=== PATIENT | male | born 1970 | race African-American/Black ===

== ENCOUNTER 2020-12-15 04:27 | Emergency (ER) | payer MEDICARE, MEDICAID ==
[~2020-12-15] VITALS: Ht 180.3 cm; Wt 77.3 kg
[~2020-12-15 04:27] MED LIST: NO HOME MEDS
[2020-12-15 04:50] VITALS: BP 136/95
== END 2020-12-15 13:24 | disposition left against medical advice (07) ==
LOC: ER 04:28
DX: R07.89 Other chest pain (principal); Z53.21 Procedure and treatment not carried out due to patient leaving prior to being seen by health care provider

== ENCOUNTER 2020-12-15 17:26 | Emergency (ER) | payer MEDICARE, MEDICAID ==
[~2020-12-15] VITALS: Ht 180.3 cm; Wt 77.3 kg
[2020-12-16] MEDS ORDERED: acetaminophen 325mg tablet PO ONE (01:25)
[2020-12-16] MEDS ORDERED: ibuprofen tablet 400 MG TABLET PO ONE (01:25)
[2020-12-16 01:44] VITALS: BP 128/68
== END 2020-12-16 01:45 | disposition home or self-care (01) ==
LOC: ER 17:26
DX: R07.89 Other chest pain (principal); R05 Cough; Z90.89 Acquired absence of other organs; Z98.890 Other specified postprocedural states
CPT/HCPCS: 71046; 93005; 99283

== ENCOUNTER 2020-12-25 08:48 | Emergency (ER) | payer MEDICARE, MEDICAID ==
[~2020-12-25] VITALS: Ht 180.3 cm; Wt 80.0 kg
[2020-12-25 09:00] VITALS: BP 128/83
[2020-12-25] MEDS ORDERED: IBUP-1984 PO (12:03)
[2020-12-25] MEDS ORDERED: ACET-1025 PO (12:03)
== END 2020-12-25 12:40 | disposition home or self-care (01) ==
LOC: ER 08:48
DX: R07.89 Other chest pain (principal); H61.21 Impacted cerumen, right ear; G80.9 Cerebral palsy, unspecified; Z90.89 Acquired absence of other organs; Z98.890 Other specified postprocedural states; Z79.899 Other long term (current) drug therapy
CPT/HCPCS: 93005; 99283

== ENCOUNTER 2021-05-12 12:05 | Emergency (ER) | payer MEDICARE, MEDICAID ==
[~2021-05-12] VITALS: Ht 180.3 cm; Wt 100.0 kg
[2021-05-12 12:46] VITALS: BP 119/84
[2021-05-12] MEDS ORDERED: COROTSUS LEFT EAR (15:44)
== END 2021-05-12 16:01 | disposition home or self-care (01) ==
LOC: ER 12:06
DX: H61.22 Impacted cerumen, left ear (principal); H60.92 Unspecified otitis externa, left ear; H93.12 Tinnitus, left ear; H92.02 Otalgia, left ear; Z90.89 Acquired absence of other organs; Z98.890 Other specified postprocedural states; Z79.899 Other long term (current) drug therapy
CPT/HCPCS: 99283